=== PATIENT | male | born 1955 | race African-American/Black ===

== ENCOUNTER 2016-04-24 07:43 | Emergency (ER) | payer BC, OTHER ==
[~2016-04-24] VITALS: Ht 177.8 cm; Wt 99.8 kg
[2016-04-24] MEDS ORDERED: NITROGLYCERIN SUBLINGUAL 0.4 MG BOTTLE OF 25. SL PRN (08:30)
[2016-04-24] MEDS ORDERED: MORPHINE SULFATE 10 MG/ML VIAL. IV ONE (08:45)
[2016-04-24] MEDS ORDERED: ASPIRIN 81 MG TAB.CHEW PO ONE (08:45)
--- NOTE | 2016-04-24 08:57 | PHYS DOC ---
Past Medical History Past Medical History: Hypertension, Other Additional Past Medical Histor: "Issues with R)shoulder,L)knee" Past Surgical History: Other Additional Past Surgical Histo: R)shoulder,L)knee Additional Information: 04/08-06/08 PPD. Alcohol Use: Rarely Drug Use: None Adult General Chief Complaint Chief Complaint: OTHER COMPLAINTS [facility] HPI Patient is a 61 year old male presents emergency room today stating that he has "concerns for my heart" as he's been experiencing atraumatic left mid back pain that radiates to his left shoulder and down his left arm for the past 5 days. Patient states this pain woke him up from his sleep last night. Patient denies any personal history of cardiac disease. He does have a history of hypertension, he smokes, he is -[place], he 61 years old. He does have a family history of primary relatives with heart attacks in the same age range. Patient denies nausea, vomiting, shortness of breath, sweats or chills. He denies anything provocative or palliative for this pain. Patient denies any history of coagulopathies, previous PEs or DVTs. However, he does indurated testosterone shots every 2 weeks and he does take Viagra for ED. Review of Systems Review of Systems Constitutional: Denies fever or chills [] Eyes: Denies change in visual acuity, redness, or eye pain [] HENT: Denies nasal congestion or sore throat [] Respiratory: Denies cough or shortness of breath [] Cardiovascular: No additional information not addressed in HPI [] GI: Denies abdominal pain, nausea, vomiting, bloody stools or diarrhea [] : Denies dysuria or hematuria [] Musculoskeletal: Denies back pain or joint pain [] Integument: Denies rash or skin lesions [] Neurologic: Denies headache, focal weakness or sensory changes [] Endocrine: Denies polyuria or polydipsia [] Current Medications Current Medications Current Medications Medications (Trade) Dose Ordered Sig/Christoph Start Time Stop Time Status Last Admin Dose Admin Aspirin (Children'S Aspirin) 324 mg 1X ONCE 04/24/16 08:45 04/24/16 08:46 DC Morphine Sulfate 4 mg 1X ONCE 04/24/16 08:45 04/24/16 08:46 DC Nitroglycerin (Nitrostat) 0.4 mg PRN Q5MIN PRN 04/24/16 08:30 Allergies Allergies Allergies Coded Allergies Type Severity Reaction Last Updated Verified No Known Drug Allergies 12/19/15 No Physical Exam Physical Exam Constitutional: Well developed, well nourished, no acute distress, non-toxic appearance. HENT: Normocephalic, atraumatic, bilateral external ears normal, oropharynx moist, no oral exudates, nose normal. [] Eyes: PERRLA, EOMI, conjunctiva normal, no discharge. [] Neck: Normal range of motion, no tenderness, supple, no stridor. Cardiovascular:Heart rate regular rhythm, no murmur. PMI is not displaced. There is no jugular vein distention or lower extremity edema. Lungs & Thorax: Patient shows no respiratory distress or respiratory fatigue. Lung sounds are clear to auscultation bilaterally. Abdomen abdomen is soft and nondistended. There are normoactive bowel sounds in all 4 quadrants. No palpable defect to the abdominal wall or pulsatile mass. Skin: Warm, dry, no erythema, no rash. [] Back: Back is normal in appearance. There is no rash or skin lesions overlying the area of tenderness to his mid back. There is no reproducible tenderness to palpation along the mid back region with the patient describes his pain. Extremities: Left upper extremity is normal in appearance and nontender to palpation. Patient demonstrates full active range of motion without aberrant. Left upper extremity is neurovascularly intact with cap refill less than 2 seconds. Neurologic: Alert and oriented X 3, normal motor function, normal sensory function, no focal deficits noted. [] Psychologic: Affect normal, judgement normal, mood normal. [] Current Patient Data Vital Signs Vital Signs Date Time Temp Pulse Resp B/P Pulse Ox O2 Delivery O2 Flow Rate FiO2 04/24/16 09:10 64 13 133/73 97 Room Air 04/24/16 08:15 98.4 98.4 Lab Values Laboratory Tests Test 04/24/16 09:05 White Blood Count 3.9x10^3/uL (4.0-11.0) L Red Blood Count 5.01x10^6/uL (4.30-5.70) Hemoglobin 15.4g/dL (13.0-17.5) Hematocrit 45.2% (39.0-53.0) Mean Corpuscular Volume 90fL (79-100) Mean Corpuscular Hemoglobin 31pg (25-35) Mean Corpuscular Hemoglobin Concent 34g/dL (31-37) Red Cell Distribution Width 15.0% (11.5-14.5) H Platelet Count 172x10^3/uL (140-400) Neutrophils (%) (Auto) 56% (31-73) Lymphocytes (%) (Auto) 36% (24-48) Monocytes (%) (Auto) 6% (0-9) Eosinophils (%) (Auto) 1% (0-3) Basophils (%) (Auto) 0% (0-3) Neutrophils # (Auto) 2.2x10^3uL (1.8-7.7) Lymphocytes # (Auto) 1.4x10^3/uL (1.0-4.8) Monocytes # (Auto) 0.2x10^3/uL (0.0-1.1) Eosinophils # (Auto) 0.0x10^3/uL (0.0-0.7) Basophils # (Auto) 0.0x10^3/uL (0.0-0.2) Prothrombin Time 12.5SEC (11.7-14.0) Prothrombin Time INR 1.0 (0.8-1.1) D-Dimer (Carri) 0.27ug/mlFEU (0.00-0.50) Sodium Level 143mmol/L (136-145) Potassium Level 3.8mmol/L (3.5-5.1) Chloride Level 104mmol/L (98-107) Carbon Dioxide Level 31mmol/L (21-32) Anion Gap 8 (6-14) Blood Urea Nitrogen 19mg/dL (8-26) Creatinine 1.1mg/dL (0.7-1.3) Estimated GFR (Cockcroft-Gault) 82.1 Glucose Level 115mg/dL (70-99) H Calcium Level 8.7mg/dL (8.5-10.1) Magnesium Level 1.7mg/dL (1.8-2.4) L Total Bilirubin 0.5mg/dL (0.2-1.0) Direct Bilirubin 0.1mg/dL (0.0-0.2) Aspartate Amino Transferase (AST) 20U/L (15-37) Alanine Aminotransferase (ALT) 30U/L (16-63) Alkaline Phosphatase 57U/L (46-116) Creatine Kinase 305U/L (39-308) Creatine Kinase MB (Mass) 2.1ng/mL (0.0-3.6) Creatine Kinase MB Relative Index 0.7% (0-4) Troponin I Quantitative < 0.017ng/mL (0.000-0.055) HL-Tym-K-Type Natriuretic Peptide < 5pg/mL (0-124) Total Protein 6.9g/dL (6.4-8.2) Albumin 4.0g/dL (3.4-5.0) Lipase 144U/L (73-393) Laboratory Tests 04/24/16 09:05 Laboratory Tests 04/24/16 09:05 EKG EKG Twelve-lead EKG was performed at 0 800 and showed a normal sinus rhythm with a heart rate of 74 bpm. There is no ST elevation or depression. NV interval is 170 ms with a QRS taoist 96 ms and a QT duration of 334 ms. Radiology/Procedures Radiology/Procedures AP chest was performed with adequate technique and interpreted by the radiologist. There is no evidence of thoracic abnormality. Course & Med Decision Making Course & Med Decision Making Upon discussion with the patient that his EKG here today shows no ST elevation [place] and the need for cardiac enzymes and some additional laboratory work as well as a chest x-ray, patient became somewhat reluctant with wanting to stay here in the emergency department. I explained to the patient that he can still have complications with his heart but did not distinctly reflect on an EKG. Patient did verbalize understanding of this, however, he did again expressed his displeasure in staying in the emergency department for further evaluation. 1002: Patient's had an uneventful stay here in the emergency department. He has not had a cardiac conduction aberrancy while being maintained on the monitor. He 's had no complaints of chest pain or shortness of breath during his stay here. His cardiac enzymes, including troponin are normal. His electrolytes are normal. His chest x-ray is normal. He does not have an elevated d-dimer. Given these normal tests findings in his report that this pain began 5 days ago, I believe this patient is safe to go home and follow up with his primary care doctor. Dragon Disclaimer Dragon Disclaimer This electronic medical record was generated, in whole or in part, using a voice recognition dictation system. Departure Departure Impression: Primary Impression: Mid back pain on left side Disposition: 01 HOME, SELF-CARE Condition: GOOD Referrals: DANICA PUTNAM (PCP) Patient Instructions: Back Pain, Adult, [id number] Additional Instructions: 1. Your EKG, laboratory tests and chest x-ray here today are normal. 2. It will be very important for you to follow up with your primary care provider as soon as she can see him/her. 3. Review the discharge instructions provided for self care and reasons to return to the emergency department. Scripts Orphenadrine Citrate 100 Mg Tablet.er100 Mg PO Q12HR muscle relaxer #14 Prov:RAMÓN MORALES 04/24/16 Hydrocodone/Apap 5-325 (Roosevelt 5-325 Tablet)1 Each Tablet1 Tab PO PRN Q6HRS PRN PAIN #15 TAB Prov:RAMÓN MORALES 04/24/16 RAMÓN MORALES Apr 24, 2016 08:57
--- NOTE | 2016-04-24 09:15 | RAD ---
Indication atraumatic shoulder pain. Chest pressure. History of hypertension. A single view of the chest was obtained. No prior imaging of the chest is available. The heart, pulmonary vessels and mediastinum appear normal. The lungs are clear. There is no pleural fluid or pneumothorax. The visualized bony structures appear grossly intact. IMPRESSION: Normal single view of the chest
[2016-04-24 09:32] LABS: BASO % 0 % (0-3); EOS % 1 % (0-3); HEMATOCRIT 45.2 % (39.0-53.0); HEMOGLOBIN 15.4 g/dL (13.0-17.5); LYMPH # 1.4 x10^3/uL (1.0-4.8); LYMPH % 36 % (24-48); MEAN CORPUSCULAR HEMOGLOBIN 31 pg (25-35); MEAN CORPUSCULAR HGB CONC 34 g/dL (31-37); MEAN CORPUSCULAR VOLUME 90 fL (79-100); MONO % 6 % (0-9); NEUT % 56 % (31-73); PLATELET COUNT 172 x10^3/uL (140-400); RED BLOOD COUNT 5.01 x10^6/uL (4.30-5.70); WHITE BLOOD COUNT 3.9 x10^3/uL (4.0-11.0)
[2016-04-24 09:38] LABS: CALCIUM 8.7 mg/dL (8.5-10.1); CREATININE 1.1 mg/dL (0.7-1.3); GFR 82.1; POTASSIUM 3.8 mmol/L (3.5-5.1)
[2016-04-24 09:45] LABS: DIRECT BILIRUBIN 0.1 mg/dL (0.0-0.2); MAGNESIUM 1.7 mg/dL (1.8-2.4); TOTAL BILIRUBIN 0.5 mg/dL (0.2-1.0); TOTAL PROTEIN 6.9 g/dL (6.4-8.2)
[2016-04-24 09:47] LABS: PROTHROMBIN TIME PATIENT 12.5 SEC (11.7-14.0)
[2016-04-24 09:52] LABS: CKMB INDEX 0.7 % (0-4); CKMB MASS 2.1 ng/mL (0.0-3.6); CREATINE KINASE 305 U/L (39-308)
[2016-04-24] MEDS ORDERED: HYDR-971 PO (10:07)
[2016-04-24] MEDS ORDERED: ORPH100T PO (10:07)
[2016-04-24 10:16] VITALS: BP 136/74
--- NOTE | 2016-04-24 11:30 | EKG ---
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
== END 2016-04-24 10:17 | disposition home or self-care (01) ==
LOC: ER 07:43
DX: M54.9 Dorsalgia, unspecified (principal); I10 Essential (primary) hypertension; F17.200 Nicotine dependence, unspecified, uncomplicated
CPT/HCPCS: 36415; 71010; 80048; 80076; 82550; 82553; 83690; 83735; 83880; 84484; 85027; 85379; 85610; 93005; 99285-25

== ENCOUNTER → 2019-05-13 | Outpatient (CLI) | payer MEDICARE, OTHER ==
[~2019-05-13] MED LIST: HYDR-3164 PO; ORPH100T PO
--- NOTE | 2019-05-13 16:14 | EKG ---
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
== END | disposition home or self-care (01) ==
LOC: EKG 15:57
PROVIDERS: ATTEND Family Medicine
DX: Z01.810 Encounter for preprocedural cardiovascular examination (principal)
CPT/HCPCS: 93005

== ENCOUNTER 2020-09-22 08:43 | Outpatient (CLI) | payer MEDICARE, OTHER ==
[2020-09-22] VITALS (17 sets, daily range): BP systolic 151–198; BP diastolic 67–100
[~2020-09-22] VITALS: Ht 177.8 cm; Wt 102.0 kg
[2020-09-22] MEDS ORDERED: MIDAZOLAM HCL/PF 2 MG/2 ML VIAL. ONE ×2 (09:31→10:12)
[2020-09-22] MEDS ORDERED: fentaNYL PF VIAL 100 MCG/2 ML VIAL ONE (09:31)
[2020-09-22] MEDS ORDERED: LIDOCAINE WITH 8.4% SOD BICARB 3 ML DISP.SYRIN. ONE (09:33)
[2020-09-22] MEDS ORDERED: ACET325T9 PO (09:36)
[2020-09-22] MEDS ORDERED: [UNRECOGNIZED DRUG - CODE] PO (09:36)
[2020-09-22] MEDS ORDERED: ASCO500C PO (09:36)
[2020-09-22] MEDS ORDERED: MULT-246 PO (09:36)
[2020-09-22] MEDS ORDERED: LISI1TAB23 PO (09:36)
[2020-09-22] MEDS ORDERED: VITA1TAB31 PO (09:36)
[2020-09-22] MEDS ORDERED: SILD20TA4 PO (09:36)
[2020-09-22] MEDS ORDERED: IBUP-577 PO (09:36)
[2020-09-22 09:37] LABS: BASO % 0 % (0-3); EOS # 0.1 x10^3/uL (0.0-0.7); EOS % 2 % (0-3); HEMATOCRIT 42.8 % (39.0-53.0); HEMOGLOBIN 14.5 g/dL (13.0-17.5); LYMPH # 1.4 x10^3/uL (1.0-4.8); LYMPH % 42 % (24-48); MEAN CORPUSCULAR HEMOGLOBIN 31 pg (25-35); MEAN CORPUSCULAR HGB CONC 34 g/dL (31-37); MEAN CORPUSCULAR VOLUME 90 fL (79-100); MONO # 0.3 x10^3/uL (0.0-1.1); MONO % 8 % (0-9); NEUT # 1.7 x10^3/uL (1.8-7.7); NEUT % 48 % (31-73); PLATELET COUNT 169 x10^3/uL (140-400); RED BLOOD COUNT 4.75 x10^6/uL (4.30-5.70); WHITE BLOOD COUNT 3.4 x10^3/uL (4.0-11.0)
[2020-09-22 09:45] LABS: CALCIUM 8.3 mg/dL (8.5-10.1); CREATININE 1.1 mg/dL (0.7-1.3); POTASSIUM 3.7 mmol/L (3.5-5.1); PROTHROMBIN TIME PATIENT 12.1 SEC (11.7-14.0)
[2020-09-22] MEDS ORDERED: fentaNYL PF VIAL 100 MCG/2 ML VIAL IV ONE (09:45)
[2020-09-22] MEDS ORDERED: MIDAZOLAM HCL/PF 2 MG/2 ML VIAL. IV ONE (09:45)
[2020-09-22] MEDS ORDERED: LIDOCAINE WITH 8.4% SOD BICARB 3 ML DISP.SYRIN. IJ ONE (09:45)
--- NOTE | 2020-09-22 13:16 | NUR ---
Patient d/c at 1300. Order received from Dr. Rivas after stable CXR examined. No bleeding at biopsy site. VS stable. PIV x2 removed. Instructions provided on sedation, procedure. Patient and verbalized understanding. All belongings taken w/ patient at time of d/c. driving home. Will contact Dr. Ramachandran for results.
--- NOTE | 2020-09-22 16:17 | RAD ---
09/22/2020 2:12 PM Procedure: CT-guided biopsy, right lung mass/nodule Clinical Indication: Right Lung Mass Discussion: The procedure was explained in its entirety to the patient or the patients designated packaging sales representative by a member of the treatment team, including a discussion of the risks, benefits and commonly accepted alternatives to the procedure, as well as the expected consequences of no therapy whatsoever. Discussion of the risks included, but was not limited to, those that are most frequent and those that are rare but possibly severe or life-threatening, as well as the possibility of unforeseen complications. All elements of maximal sterile barrier technique including the use of a cap, mask, sterile gown, sterile gloves, large sterile sheet, appropriate hand hygiene, and 2% chlorhexidine for cutaneous antisepsis (or acceptable alternative antiseptic per current guidelines) were followed for this procedure. The patient was placed in the prone position on the CT table. CT imaging was obtained redemonstrating a mass in the superior right lower lobe adjacent to the major fissure. 1% lidocaine was administered for local anesthesia. Under intermittent CT guidance a 17-gauge needle was advanced to the edge of the nodule/mass. Core biopsy samples were obtained. Mild perilesional hemorrhage and minimal pneumothorax is seen following biopsy. The guiding needle was removed. Repeat imaging was performed after several minutes demonstrating near total resolution of the previously seen pneumothorax. Hemorrhage is grossly stable. The patient was hemodynamically stable. Sterile dressings were applied. The procedures performed under conscious sedation including continuous cardiopulmonary monitoring via dedicated sedation nurse. Yucd-hy-saxy sedation time: 30 minutes Impression: CT-guided biopsy, right lower lobe pulmonary nodule. Mild perilesional hemorrhage and trace pneumothorax seen at the end of procedure. Patient will be observed for several hours with follow-up radiograph. PQRS Compliance Statement: One or more of the following individualized dose reduction techniques were utilized for this examination: 1. Automated exposure control 2. Adjustment of the mA and/or kV according to patient size 3. Use of iterative reconstruction technique
--- NOTE | 2020-09-22 16:32 | RAD ---
Single view of the chest. 09/22/2020 12:35 PM Indication: Reason: POST-LUNG BIOPSY. TO BE DONE AT 1245. / Spl. Instructions: / History: Comparison: CT chest August 22, 2020 Findings: Right lower lobe lesion can be seen with probable minimal perilesional hemorrhage. No pneum othorax. No pleural effusion. Left lung demonstrates mild discoid atelectasis. Heart size is normal. No acute osseous changes are seen. Impression: 1. No pneumothorax. 2. Right lower lobe nodule with mild perilesional hemorrhage Electronically signed by: Tremaine Rivas MD (09/22/2020 4:29 PM) [id number]
== END 2020-09-22 13:00 | disposition home or self-care (01) ==
LOC: INTRAD 08:43
PROVIDERS: ATTEND Radiology Radiation Oncology
DX: R91.8 Other nonspecific abnormal finding of lung field (principal); I10 Essential (primary) hypertension; M19.90 Unspecified osteoarthritis, unspecified site; J98.11 Atelectasis; F17.210 Nicotine dependence, cigarettes, uncomplicated; Z79.899 Other long term (current) drug therapy; Z98.890 Other specified postprocedural states
CPT/HCPCS: 32408; 36415; 71045; 80048; 85025; 85610; 99152; 99153; J2250; J3010; J3490

== ENCOUNTER → 2020-09-29 | Outpatient (CLI) | payer MEDICARE, OTHER ==
[2020-09-22 12:45] VITALS: BP 158/67
[~2020-09-29] MED LIST changes: +ACET325T9 PO; +ASCO500C PO; +GADOTERATE 7.5 MMOL/15ML VIAL. IVP ONE; +IBUP-577 PO; +LISI1TAB23 PO; +MULT-246 PO; +SILD20TA4 PO; +VITA1TAB31 PO; +[UNRECOGNIZED DRUG - CODE] PO
--- NOTE | 2020-09-29 12:51 | RAD ---
EXAMINATION: Magnetic resonance imaging (MRI) of the brain and brainstem without and with contrast 11:11 AM HISTORY: History of lung adenocarcinoma. TECHNIQUE: Multiplanar multi-weighted MRI of the brain and brainstem was performed without and with i ntravenous contrast using the general brain protocol. Contrast information: 20 mL Gadolinium based contrast COMPARISON: None available. FINDINGS: The scalp and calvarium are normal. The superior sagittal sinus demonstrates normal venous flow. The corpus callosum is normal in shape and signal intensity. The posterior fossa is unremarkable. The p ituitary and sella are normal. The brainstem and craniocervical junction are unremarkable. Diffusion weighted images reveal no hyperintensities to suggest acute cerebral infarction. The suscep tibility weighted sequences reveal no evidence of acute or chronic hemorrhage. The ventricles are nor mal in size and position without evidence of hydrocephalus. There are no areas of abnormal contrast enhancement. The paranasal sinuses are normal. The visualized portions of the mastoids are unremarkable. The orbi ts appear normal. Normal flow voids are demonstrated in the carotid arteries and basilar artery. IMPRESSION: No evidence for intracranial metastatic disease. Electronically signed by: Melanie Gomez MD (09/29/2020 12:49 PM) [id number]
== END ==
LOC: MRI 10:13
PROVIDERS: ATTEND Radiology Radiation Oncology
DX: C34.31 Malignant neoplasm of lower lobe, right bronchus or lung (principal)
CPT/HCPCS: 70553; A9575

== ENCOUNTER → 2021-01-18 | Outpatient (CLI) | payer MEDICARE, OTHER ==
[2020-09-22 12:45] VITALS: BP 158/67
[~2021-01-18] MED LIST changes: -GADOTERATE 7.5 MMOL/15ML VIAL. IVP ONE
--- NOTE | 2021-01-18 15:44 | RAD ---
EXAM: CHEST 2 VIEWS. HISTORY: Lung cancer. COMPARISON: 09/22/2020. FINDINGS: Frontal and lateral views of the chest are obtained. An airspace opacity in the superior segment of the right lower lobe may reflect pneumonia, hemorrhage or posttreatment change. An underlying mass may be obscured and cannot appreciated. CT could further evaluate. There is no pneumothorax or pleural effusion. The heart is not enlarged. IMPRESSION: 1. A new airspace opacity in the superior segment of the right upper lobe may reflect pneumonia, hemo rrhage or posttreatment change. An underlying mass may be obscured by this process. CT could further evaluate if the diagnosis is unclear. Electronically signed by: Berhane Valverde MD (01/18/2021 3:42 PM) [id number]
== END ==
LOC: RAD 11:39
PROVIDERS: ATTEND Radiology Radiation Oncology
DX: C34.31 Malignant neoplasm of lower lobe, right bronchus or lung (principal)
CPT/HCPCS: 71046

== ENCOUNTER → 2021-03-23 | Outpatient (CLI) | payer MEDICARE, OTHER ==
[2020-09-22 12:45] VITALS: BP 158/67
[~2021-03-23] MED LIST changes: -LISI1TAB23 PO; +LISI1TAB35 PO
--- NOTE | 2021-03-23 11:38 | RAD ---
NM PET/CT SKULL BASE TO MID THIGH Clinical Indication: Lung adenocarcinoma. Comparison: August 31, 2020 Technique: Patient blood glucose at the time of injection is 121 mg/dL. The patient was administered 12.3 mCi of F-18 FDG intravenously. The patient rested quietly during a 60 minute uptake period. Then PET imaging from the skull base to the upper thighs was performed. A noncontrast CT was acquired ove r this same area. The CT is for attenuation correction and anatomic localization, it is not of diagno stic quality and is not intended to diagnose disease independently of the PET. PQRS Compliance Statement: One or more of the following individualized dose reduction techniques were utilized for this examinat ion: 1. Automated exposure control 2. Adjustment of the mA and/or kV according to patient size 3. Use of iterative reconstruction technique Findings: Background: Mediastinal SUV max: 4.77 Liver SUV max: 5.55 Head and neck: There is no evidence of FDG-avid disease. Chest: Increased consolidations within the right upper and lower lobes the region of the previously seen mas s. Increased right upper lobe consolidations with partial atelectasis. Mild metabolic activity within the consolidations the region of the previously seen mass SUV max 5.88. Small loculated pleural fusi on. No pathologic lymphadenopathy. Coronary artery calcifications. Abdomen and pelvis: The liver, spleen, adrenal glands, pancreas and gallbladder are unremarkable. No hydronephrosis. No r enal calculus. Normal appearance of the urinary bladder. Colonic diverticulosis. Normal appendix. No evidence of bowel obstruction. No pathologic lymphadenopa thy. No ascites. Atheromatous plaque throughout the nonaneurysmal abdominal aorta and branch vessels. Musculoskeletal: Postoperative changes lumbar spine. 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 Increased muscle activity related to recent meal or activity. IMPRESSION: 1. Increased consolidations within the region of the previously seen right lower lobe mass and withi n the right upper lobe with mild metabolic activity, may relate to posttreatment changes. Recommend c orrelation with timing of radiation and recommend short-term 3 month follow-up chest CT without contr ast. Electronically signed by: Arash Mcgee DO (03/23/2021 11:36 AM) [id number]
== END ==
LOC: PETSC 08:24
PROVIDERS: ATTEND Radiology Radiation Oncology
DX: C34.31 Malignant neoplasm of lower lobe, right bronchus or lung (principal); J98.11 Atelectasis; K57.30 Diverticulosis of large intestine without perforation or abscess without bleeding; I25.10 Atherosclerotic heart disease of native coronary artery without angina pectoris; I70.0 Atherosclerosis of aorta; M19.011 Primary osteoarthritis, right shoulder; M24.011 Loose body in right shoulder; Z98.890 Other specified postprocedural states
CPT/HCPCS: 78815; A9552

== ENCOUNTER → 2021-04-25 | Outpatient (CLI) | payer MEDICARE, OTHER ==
[2020-09-22 12:45] VITALS: BP 158/67
--- NOTE | 2021-04-25 09:42 | RAD ---
XR CHEST 2V History: Reason: LUNG ADENOCARCINOMA / Spl. Instructions: / History: Comparison: January 18, 2021 Findings: Right midlung masslike consolidation, decreased compared to prior. No pleural effusion. No pneumothor ax. Normal heart size. Impression: 1. Decreased right midlung masslike consolidation compatible with known malignancy. Electronically signed by: Arash Mcgee DO (04/25/2021 9:40 AM) [id number]
== END ==
LOC: RAD 08:16
PROVIDERS: ATTEND Radiology Radiation Oncology
DX: C34.31 Malignant neoplasm of lower lobe, right bronchus or lung (principal)
CPT/HCPCS: 71046